=== PATIENT | female | born 1995 | race Caucasian/White ===

== ENCOUNTER → 2017-10-21 | Outpatient (CLI) | payer MEDICAID | END | disposition home or self-care (01) | LOC: RAD 14:12 | DX: O26.892 Other specified pregnancy related conditions, second trimester (principal); Z3A.19 19 weeks gestation of pregnancy; R76.11 Nonspecific reaction to tuberculin skin test without active tuberculosis | CPT/HCPCS: 71046 ==

== ENCOUNTER 2018-03-06 09:12 | Inpatient (IN) | payer MEDICAID ==
[2018-03-06] MEDS ORDERED: LIDOCAINE 1% (MPF) 30 ML INJ INJ (11:30)
[2018-03-06] MEDS ORDERED: CARBOPROST 250 MCG INJ IM (11:30)
[2018-03-06] MEDS ORDERED: IBUPROFEN 600 MG TAB PO (11:30)
[2018-03-06] MEDS ORDERED: BUTORPHANOL 2 MG INJ IV (11:30)
[2018-03-06] MEDS ORDERED: OXYTOCIN 30 UNITS/LR 500 ML IV (11:30)
[2018-03-06] MEDS ORDERED: METHYLERGONOVINE 0.2 MG INJ IM (11:30)
[2018-03-06] MEDS ORDERED: MISOPROSTOL 200 MCG TAB PR (11:30)
[2018-03-06 11:31] LABS: ADD MAN DIFF? NO
[2018-03-06 11:46] LABS: BASOPHILS % 0.1 % (0.0-2.0); EOSINOPHILS # 0.1 10^3/ul (0.0-0.5); EOSINOPHILS % 0.8 % (0.0-7.0); HEMOGLOBIN 12.7 g/dl (12.0-16.0); LYMPHOCYTES # 1.5 10^3/ul (0.8-2.9); LYMPHOCYTES % 17.4 % (15.0-51.0); MEAN CORPUSCULAR HEMOGLOBIN 29.4 pg (29.0-33.0); MEAN CORPUSCULAR HGB CONC 33.4 g/dl (32.0-37.0); MEAN PLATELET VOLUME 10.7 fl (7.4-10.4); MONOCYTE # 0.8 10^3/ul (0.3-0.9); MONOCYTES % 8.7 % (0.0-11.0); NEUTROPHIL # 6.3 10^3/ul (1.6-7.5); NEUTROPHILS % 72.3 % (39.0-77.0); PLATELET COUNT 221 10^3/UL (140-415); RED BLOOD COUNT 4.32 10^6/ul (4.20-5.40); RED CELL DISTRIBUTION WIDTH 12.5 % (11.5-14.5)
[2018-03-06 11:46] LABS: WHITE BLOOD COUNT 8.7 10^3/ul (4.8-10.8)
[2018-03-06 12:01] LABS: INR 0.89; PARTIAL THROMBOPLASTIN TIME 26.2 Sec (23.0-35.0); PROTIME 12.1 Sec (11.9-14.9); PT RATIO 0.9
[2018-03-06 12:44] LABS: HEPATITIS B SURFACE ANTIGEN NEGATIVE (NEGATIVE)
[2018-03-06] MEDS: AMPICILLIN 2 GM/NS (PMX) 100 ML IV (12:57)
[2018-03-06] MEDS: LACTATED RINGER'S 1,000 ML IV ×2 (12:57→19:18)
[2018-03-06] MEDS: OXYTOCIN 30 UNITS/LR 500 ML IV (15:16)
[2018-03-06] MEDS: AMPICILLIN 1 GM/NS (PMX) 50 ML IV (17:02)
[2018-03-06 18:16] LABS: RAPID PLASMA REAGIN NONREACTIVE (NR)
[2018-03-07] MEDS: AMPICILLIN 1 GM/NS (PMX) 50 ML IV ×5 (04:45→23:09)
[2018-03-07] MEDS: LACTATED RINGER'S 1,000 ML IV ×2 (04:46→14:14)
[2018-03-07] MEDS: OXYTOCIN 30 UNITS/LR 500 ML IV (09:28)
[2018-03-07] MEDS ORDERED: NALOXONE (0.4 MG/ML) INJ IV (21:00)
[2018-03-08] MEDS: FENTAnyl 2MCG/ML-ROPIV 0.2% 100 ML BAG EPI (03:20)
[2018-03-08] MEDS: AMPICILLIN 1 GM/NS (PMX) 50 ML IV (03:22)
[2018-03-08] MEDS: LACTATED RINGER'S 1,000 ML IV ×4 (03:23→19:20)
[2018-03-08] MEDS ORDERED: MINERAL OIL LIGHT 10 ML VIAL (04:07)
[2018-03-08] MEDS: OXYTOCIN 30 UNITS/LR 500 ML IV ×2 (05:40→07:13)
[2018-03-08] MEDS ORDERED: BENZOCAINE 20% 56 ML SPRAY TOP (08:30)
[2018-03-08] MEDS ORDERED: OXYCODONE/ASPIRIN (4.88/325) TAB PO ×2 (08:30)
[2018-03-08] MEDS ORDERED: CARBOPROST 250 MCG INJ IM (08:30)
[2018-03-08] MEDS ORDERED: OXYTOCIN 30 UNITS/LR 500 ML IV (08:30)
[2018-03-08] MEDS ORDERED: METHYLERGONOVINE 0.2 MG INJ IM (08:30)
[2018-03-08] MEDS ORDERED: ZOLPIDEM 5 MG TAB PO (08:30)
[2018-03-08] MEDS ORDERED: MISOPROSTOL 200 MCG TAB PR (08:30)
[2018-03-08] MEDS: LANOLIN 7 GM TUBE TOP (10:02)
[2018-03-08] MEDS: WITCH HAZEL/GLYCERIN PAD PR (10:03)
[2018-03-08] MEDS: IBUPROFEN 600 MG TAB PO ×3 (11:21→23:23)
[2018-03-08] MEDS: SENNA/DOCUSATE NA (8.6MG/50MG) TAB PO ×2 (19:00→21:31)
[2018-03-09] MEDS: LACTATED RINGER'S 1,000 ML IV (03:22)
[2018-03-09] MEDS: IBUPROFEN 600 MG TAB PO ×3 (05:49→17:33)
[2018-03-09 08:07] LABS: ADD MAN DIFF? NO
[2018-03-09 08:17] LABS: BASOPHILS % 0.2 % (0.0-2.0); EOSINOPHILS # 0.1 10^3/ul (0.0-0.5); HEMATOCRIT 33.5 % (37.0-47.0); HEMOGLOBIN 11.3 g/dl (12.0-16.0); LYMPHOCYTES # 1.7 10^3/ul (0.8-2.9); LYMPHOCYTES % 16.1 % (15.0-51.0); MEAN CORPUSCULAR HEMOGLOBIN 29.8 pg (29.0-33.0); MEAN CORPUSCULAR HGB CONC 33.7 g/dl (32.0-37.0); MEAN CORPUSCULAR VOLUME 88.4 fl (82.0-101.0); MEAN PLATELET VOLUME 10.6 fl (7.4-10.4); MONOCYTE # 0.8 10^3/ul (0.3-0.9); MONOCYTES % 7.2 % (0.0-11.0); NEUTROPHIL # 7.8 10^3/ul (1.6-7.5); NEUTROPHILS % 74.8 % (39.0-77.0); PLATELET COUNT 183 10^3/UL (140-415); RED BLOOD COUNT 3.79 10^6/ul (4.20-5.40); RED CELL DISTRIBUTION WIDTH 12.6 % (11.5-14.5)
[2018-03-09 08:17] LABS: WHITE BLOOD COUNT 10.4 10^3/ul (4.8-10.8)
[2018-03-09] MEDS: SENNA/DOCUSATE NA (8.6MG/50MG) TAB PO (09:11)
[2018-03-10] MEDS ORDERED: DIPHTH/TET/ACEL PERTUSS (ADULT) 0.5 ML VIAL IM* (09:00)
== END 2018-03-09 21:00 | disposition home or self-care (01) | DRG 807 ==
LOC: OBT 09:12 → PP1 03-08 08:10 → L-D 09:12 → PP1 03-08 18:38 → OBT 10:44 → L-D 10:30
PROVIDERS: Obstetrics & Gynecology
PROC: 10E0XZZ Delivery of Products of Conception, External Approach (ICD-10-PCS; principal; 2018-03-08)
PROC: 0W8NXZZ Division of Female Perineum, External Approach (ICD-10-PCS; 2018-03-08)
DX: O48.0 Post-term pregnancy (principal); Z37.0 Single live birth; Z3A.40 40 weeks gestation of pregnancy
CPT/HCPCS: 62319; 76815; 76818; 85025; 85610; 85730; 86592; 86900; 86901; 87340